=== PATIENT | male | born 1950 | race Caucasian/White ===

== ENCOUNTER 2025-01-15 09:58 | Outpatient (CLI) | payer MEDICARE, BC ==
[2025-01-15 10:40] LABS: Estimated GFR - POC 49.0
== END 2025-01-15 09:59 | disposition home or self-care (01) ==
LOC: SCSMRI 09:58
PROVIDERS: ATTEND Urology
DX: R97.20 Elevated prostate specific antigen [PSA] (principal); N42.89 Other specified disorders of prostate
CPT/HCPCS: 36415; 72197; 82565

== ENCOUNTER 2025-02-26 11:00 | Outpatient (CLI) | payer MEDICARE, BC | END 2025-02-26 11:01 | disposition home or self-care (01) | LOC: PET 11:00 | PROVIDERS: ATTEND Internal Medicine Hematology & Oncology | DX: C61 Malignant neoplasm of prostate (principal) | CPT/HCPCS: 78815; A9595 ==